=== PATIENT | female | born 1985 | race Two or more races ===

== ENCOUNTER 2021-06-13 21:32 | Emergency (ER) | payer OTHER ==
[~2021-06-13] VITALS: Ht 172.7 cm; Wt 85.3 kg
[2021-06-13 22:47] VITALS: BP 129/88
[2021-06-13] MEDS ORDERED: AMOX-430 PO (22:59)
--- NOTE | 2021-06-13 23:05 | NUR ---
EMT AT PT'S BEDSIDE FOR WOUND CARE
== END 2021-06-13 23:30 | disposition home or self-care (01) ==
LOC: ER 21:48
DX: S61.032A Puncture wound without foreign body of left thumb without damage to nail, initial encounter (principal); Z60.2 Problems related to living alone; W54.0XXA Bitten by dog, initial encounter; Y93.89 Activity, other specified; Y92.89 Other specified places as the place of occurrence of the external cause; Y99.8 Other external cause status